=== PATIENT | male | born 1985 | race Caucasian/White ===

== ENCOUNTER 2016-11-26 15:12 | Emergency (ER) | payer OTHER ==
[2016-11-26] MEDS: NS 0.9% 1000 ML* 2,000 ML IV ONE ×2 (17:27→17:40)
--- NOTE | 2016-11-26 17:47 | RAD ---
Indication: Near syncope. Vomiting. Comparison: No relevant prior exams available on the [facility] PACS for comparison. Technique: Upright AP 1715 hours Report: Clear lungs and pleural spaces. Negative for pneumothorax. The heart, pulmonary vasculature, and mediastinal contours are unremarkable. Negative for free air beneath the diaphragm. Unremarkable osseous structures and soft tissue contours. IMPRESSION: No evidence for acute intrathoracic disease.
[2016-11-26 18:06] LABS: BUN/Creatinine Ratio 10.4 (8-20); Calcium 9.4 mg/dL (8.6-10.3); Comments Flag Yes; EGFR African American 86.6 (>60); EGFR Non-African American 67.4 (>60); Globulin 3.3 g/dL (2-4); Hematocrit 50 % (42-52); Hemoglobin 16.8 g/dl (14.0-18.0); Magnesium 2.3 mg/dL (1.9-2.7); Mean Corpuscular HGB Conc 34 g/dl (31-36); Mean Corpuscular Hemoglobin 32 pg (27-31); Mean Corpuscular Volume 94 fL (80-94); Mean Platelet Volume 10 um3 (7.4-10.4); Potassium 3.8 mmol/L (3.5-5.0); Red Cell Distribution Width 13 % (10.5-15); Total Bilirubin 0.4 mg/dL (0.2-1.0); Total Protein 8.3 g/dL (6.4-8.9); Troponin I 0.01 ng/mL (<0.04); White Blood Count 28.7 10^3/ul (3.5-10.8)
[2016-11-26 18:07] LABS: Add Diff/Slide Review? Slide Review Added
[2016-11-26 18:33] LABS: TSH (Thyroid Stimulating Horm) 0.29 mcIU/mL (0.34-5.60)
--- NOTE | 2016-11-26 18:53 | ED ---
Sadie Lafleur Alfonso, scribed for Michael Young MD on 11/26/16 at 1716 . Complex/Multi-Sys Presentation - HPI Summary HPI Summary: This patient is a 31 year old M presenting to [facility] accompanied by with a chief complaint of fainting this afternoon. The CC is described as feeling fuzzy and terrible. The patient rates the pain 3/10 in severity. Symptoms aggravated by nothing and alleviated by vomiting. The patient reports chills, diaphoresis, dehydration, N/V (resolved), CP (aching and sore), h and numbness. The patient denies any headache blurred vision, diarrhea, and constipation. He reports consuming 4 beers this morning. - History Of Current Complaint Chief Complaint: EDGeneral Time Seen by Provider: 11/26/16 17:03 Hx Obtained From: Patient Onset/Duration: Sudden Onset, Lasting Days - Afternoon, Still Present, Resolved Timing: Constant Severity Currently: Mild Severity Initially: Mild Aggravating Factor(s): Nothing Alleviating Factor(s): Vomiting Associated Signs And Symptoms: Positive: Other - The patient reports chills, diaphoresis, dehydration, N/V (resolved), CP (aching and sore), headache, and numbness. The patient denies blurred vision, diarrhea, and constipation. - Allergies/Home Medications Allergies/Adverse Reactions: Allergies Allergy/AdvReac Type Severity Reaction Status Date / Time No Known Allergies Allergy Verified 03/24/15 11:08 PMH/Surg Hx/FS Hx/Imm Hx Endocrine/Hematology History: Denies: Hx Diabetes Cardiovascular History: Denies: Hx Hypertension, Hx Pacemaker/ICD History: Denies: Hx Dialysis, Hx Renal Disease Sensory History: Denies: Hx Hearing Aid Psychiatric History: Denies: Hx Panic Disorder - Immunization History Date of Tetanus Vaccine: UTD Date of Influenza Vaccine: NO Infectious Disease History: No Infectious Disease History: Denies: Traveled Outside the [place] in Last 30 Days - Family History Known Family History: Negative: Cardiac Disease, Diabetes - Social History Alcohol Use: Daily Substance Use Type: Reports: None Smoking Status (MU): Never Smoked Tobacco Review of Systems Positive: Chills, Skin Diaphoresis, Other - Positive dehydration Negative: Blurred Vision Positive: Vomiting, Nausea, Other - Negative constipation.. Negative: Diarrhea Positive: Headache, Numbness, Syncope All Other Systems Reviewed And Are Negative: Yes Physical Exam - Summary Physical Exam Summary: VITAL SIGNS: Reviewed. GENERAL: Patient is a well-developed and nourished male who is lying comfortable in the stretcher. Patient is not in any acute respiratory distress. Alcohol smell on his breath. HEAD AND FACE: No signs of trauma. No ecchymosis, hematomas or skull depressions. No sinus tenderness. EYES: PERRLA, EOMI x 2, No injected conjunctiva, no nystagmus. EARS: Hearing grossly intact. Ear canals and tympanic membranes are within normal limits. MOUTH: Oropharynx within normal limits. NECK: Supple, trachea is midline, no adenopathy, no JVD, no carotid bruit, no c- spine tenderness, neck with full ROM. CHEST: Symmetric, no tenderness at palpation LUNGS: Clear to auscultation bilaterally. No wheezing or crackles. CVS: Regular rate and rhythm, S1 and S2 present, Murmur appreciated. No gallops appreciated. ABDOMEN: Soft, non-tender. No signs of distention. No rebound no guarding, and no masses palpated. Bowel sounds are normal. EXTREMITIES: FROM in all major joints, no edema, no cyanosis or clubbing. NEURO: Alert and oriented x 3. No acute neurological deficits. Speech is normal and follows commands. SKIN: Dry and warm Triage Information Reviewed: Yes Vital Signs On Initial Exam: Initial Vitals Temp Pulse Resp BP Pulse Ox 97.5 F 110 20 115/59 100 11/26/16 15:20 11/26/16 15:20 11/26/16 15:20 11/26/16 15:20 11/26/16 15:20 Vital Signs Reviewed: Yes - Barbara Coma Scale Coma Scale Total: 15 Diagnostics - Vital Signs Vital Signs Temp Pulse Resp BP Pulse Ox 11/26/16 16:17 97.5 F 110 20 115/59 100 11/26/16 15:20 97.5 F 110 20 115/59 100 - Laboratory Lab Results: Lab Results 11/26/16 11/26/16 11/26/16 Range/Units 17:35 17:35 17:35 WBC 28.7 H (3.5-10.8) 10^3/ul RBC 5.30 (4.0-5.4) 10^6/ul Hgb 16.8 (14.0-18.0) g/dl Hct 50 (42-52) % MCV 94 (80-94) fL MCH 32 H (27-31) pg MCHC 34 (31-36) g/dl RDW 13 (10.5-15) % Plt Count 238 (150-450) 10^3/ul MPV 10 (7.4-10.4) um3 Neut % (Auto) 87.1 H (38-83) % Lymph % (Auto) 5.4 L (25-47) % [place] % (Auto) 7.1 (1-9) % Eos % (Auto) 0.2 (0-6) % Baso % (Auto) 0.2 (0-2) % Absolute Neuts (auto) 25.0 H (1.5-7.7) 10^3/ul Absolute Lymphs (auto) 1.6 (1.0-4.8) 10^3/ul Absolute Monos (auto) 2.0 H (0-0.8) 10^3/ul Absolute Eos (auto) 0.1 (0-0.6) 10^3/ul Absolute Basos (auto) 0.1 (0-0.2) 10^3/ul Absolute Nucleated RBC 0.05 10^3/ul Nucleated RBC % 0.2 Sodium 140 (133-145) mmol/L Potassium 3.8 (3.5-5.0) mmol/L Chloride 103 (101-111) mmol/L Carbon Dioxide 26 (22-32) mmol/L Anion Gap 11 (2-11) mmol/L BUN 13 (6-24) mg/dL Creatinine 1.25 H (0.67-1.17) mg/dL Est GFR ( Amer) 86.6 (>60) Est GFR (Non-Af Amer) 67.4 (>60) BUN/Creatinine Ratio 10.4 (8-20) Glucose 89 (70-100) mg/dL Lactic Acid 1.9 (0.5-2.0) mmol/L Calcium 9.4 (8.6-10.3) mg/dL Magnesium 2.3 (1.9-2.7) mg/dL Total Bilirubin 0.40 (0.2-1.0) mg/dL AST 19 (13-39) U/L ALT 12 (7-52) U/L Alkaline Phosphatase 72 (34-104) U/L Total Creatine Kinase 270 H (10-223) U/L Troponin I 0.01 (<0.04) ng/mL B-Natriuretic Peptide ( - 100) pg/mL Total Protein 8.3 (6.4-8.9) g/dL Albumin 5.0 (3.2-5.2) g/dL Globulin 3.3 (2-4) g/dL Albumin/Globulin Ratio 1.5 (1-3) TSH 0.29 L (0.34-5.60) mcIU/mL Serum Alcohol 183 H (<10) mg/dL 11/26/16 Range/Units 17:35 WBC (3.5-10.8) 10^3/ul RBC (4.0-5.4) 10^6/ul Hgb (14.0-18.0) g/dl Hct (42-52) % MCV (80-94) fL MCH (27-31) pg MCHC (31-36) g/dl RDW (10.5-15) % Plt Count (150-450) 10^3/ul MPV (7.4-10.4) um3 Neut % (Auto) (38-83) % Lymph % (Auto) (25-47) % [place] % (Auto) (1-9) % Eos % (Auto) (0-6) % Baso % (Auto) (0-2) % Absolute Neuts (auto) (1.5-7.7) 10^3/ul Absolute Lymphs (auto) (1.0-4.8) 10^3/ul Absolute Monos (auto) (0-0.8) 10^3/ul Absolute Eos (auto) (0-0.6) 10^3/ul Absolute Basos (auto) (0-0.2) 10^3/ul Absolute Nucleated RBC 10^3/ul Nucleated RBC % Sodium (133-145) mmol/L Potassium (3.5-5.0) mmol/L Chloride (101-111) mmol/L Carbon Dioxide (22-32) mmol/L Anion Gap (2-11) mmol/L BUN (6-24) mg/dL Creatinine (0.67-1.17) mg/dL Est GFR ( Amer) (>60) Est GFR (Non-Af Amer) (>60) BUN/Creatinine Ratio (8-20) Glucose (70-100) mg/dL Lactic Acid (0.5-2.0) mmol/L Calcium (8.6-10.3) mg/dL Magnesium (1.9-2.7) mg/dL Total Bilirubin (0.2-1.0) mg/dL AST (13-39) U/L ALT (7-52) U/L Alkaline Phosphatase (34-104) U/L Total Creatine Kinase (10-223) U/L Troponin I (<0.04) ng/mL B-Natriuretic Peptide 13 ( - 100) pg/mL Total Protein (6.4-8.9) g/dL Albumin (3.2-5.2) g/dL Globulin (2-4) g/dL Albumin/Globulin Ratio (1-3) TSH (0.34-5.60) mcIU/mL Serum Alcohol (<10) mg/dL Result Diagrams: 11/26/16 17:35 11/26/16 17:35 Lab Statement: Any lab studies that have been ordered have been reviewed, and results considered in the medical decision making process. - Radiology CXR Radiology Interpretation Completed By: Radiologist - No evidence for acute intrathoracic disease. - EKG 1530 Cardiac Rate: Tachycardia - BPM 115 EKG Rhythm: Sinus Tachycardia EKG Interpretation: Q waves in II and III Complex Multi-Symp Course/Dx Course Of Treatment: This patient is a 31 year old M presenting to [facility] accompanied by with a chief complaint of fainting this afternoon. No LOC. The CC is described as feeling fuzzy and terrible. The patient rates the pain 3/10 in severity. Symptoms aggravated by nothing and alleviated by vomiting. The patient reports chills, diaphoresis, dehydration, N/V (resolved), CP ( aching and sore), numbness. The patient denies any headache, blurred vision, diarrhea, and constipation. He reports consuming 4 beers this morning. Assessment/Plan: Blood tests show WBC of 28.7 without any bands, creatinine of 1.25, CBK of 270, and serum alcohol of 183. EKG reveals sinus tachycardia. CXR reveals No evidence for acute intrathoracic disease. In the ED course, the patient was given 2 liters of IV fluid. Patient remains stable without any complains and he reports that he is feeling better. After the second liter is done I will repeat to blood work to see if the WBC decreases. Pt denies any headache, CP, SOB, N/V, diarrhea, or constipation currently. He denies any dysuria, urinary frequency, or urgency. Therefore, I will sign out the patient to Dr. Yusuf to repeat the blood work and see if Leukocytosis improves. At this time, the patient is hemodynamically stable and alert and oriented to person, place, and time. - Diagnoses Provider Diagnoses: Leucocytosis, Dehydration, Alcohol intoxication Discharge - Discharge Plan Condition: Stable Disposition: OTHER Discharge Disposition Comment: Pt is signed out to Dr. Yusuf, pending disposition, awaiting labs. Referrals: [facility] [Outside] - 3 Days The documentation as recorded by the Sadie tyler Alfonso accurately reflects the service I personally performed and the decisions made by me, Michael Young MD.
[2016-11-26] MEDS ORDERED: NS 0.9% 1000 ML* 1,000 ML BOLUS ONE (20:15)
[2016-11-26 20:27] LABS: Hematocrit 44 % (42-52); Hemoglobin 14.9 g/dl (14.0-18.0); Mean Corpuscular HGB Conc 34 g/dl (31-36); Mean Corpuscular Hemoglobin 32 pg (27-31); Mean Corpuscular Volume 94 fL (80-94); Mean Platelet Volume 10 um3 (7.4-10.4); Red Blood Count 4.65 10^6/ul (4.0-5.4); Red Cell Distribution Width 12 % (10.5-15); White Blood Count 17.5 10^3/ul (3.5-10.8)
[2016-11-26 20:32] LABS: Add Diff/Slide Review? Slide Review Added; Comments Flag Yes
[2016-11-26 21:00] LABS: BUN/Creatinine Ratio 10.5 (8-20); Calcium 8.7 mg/dL (8.6-10.3); EGFR African American 96.4 (>60); EGFR Non-African American 74.9 (>60); Potassium 4.1 mmol/L (3.5-5.0)
[2016-11-26 21:40] LABS: Urine Bacteria Absent (Absent); Urine Bilirubin Negative (Negative); Urine Glucose Negative (Negative); Urine Nitrite Negative (Negative)
[2016-11-26 21:47] VITALS: BP 130/89
--- NOTE | 2016-11-26 22:03 | ED ---
Jhon Lafleur Soohyun, scribed for Anette Yusuf MD on 11/26/16 at 2013 . Progress - Progress Note Progress Note: This 31 y/o male has been signed out from Dr. Young. Blood work with elevated WBC is reviewed with pt and significant other present at bedside at 2012 PM. Hard copies of blood work is provided to patient. Negative SOB, although pt is noted with respiratory rate fluctuating between 10s and 30s while lying down on stretcher. Respiratory is mostly in 10s when pt is upright. Negative CP. Pt again confirms that he only consumed alcohol today SE[employer]. Pt expresses that he is ready for discharge. Pt is encouraged to provide urine sample. Re-Evaluation - Re-Evaluation First Eval Re-Evaluation Time: 21:42 Comment: MD in room to update pt and significant other present at bedside on UA. Plan of care involving discharge and outpatient f/u is discussed and they are agreeable. Course/Dx - Diagnoses Provider Diagnoses: Leucocytosis, Dehydration, Alcohol intoxication, Elevated BP without diagnosis of hypertension The documentation as recorded by the Jhon tyler Soohyun accurately reflects the service I personally performed and the decisions made by me, Anette Yusuf MD.
== END 2016-11-26 21:51 | disposition home or self-care (01) ==
LOC: ED 15:12
DX: D72.829 Elevated white blood cell count, unspecified (principal); E86.0 Dehydration; F10.129 Alcohol abuse with intoxication, unspecified; Y90.6 Blood alcohol level of 120-199 mg/100 ml; R51 Headache; R55 Syncope and collapse
CPT/HCPCS: 36415; 71010; 80048; 80053; 80320; 81003; 81015; 82550; 82553; 83605; 83735; 83880; 84443; 84484; 85025; 87086; 93005; 96360; 99283; G0480

== ENCOUNTER 2019-01-05 11:17 | Emergency (ER) | payer OTHER ==
[2019-01-05 11:51] VITALS: BP 135/89
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
== END 2019-01-05 12:53 | disposition home or self-care (01) ==
LOC: UCEAST 11:17
DX: M79.642 Pain in left hand (principal)
CPT/HCPCS: 99213; G0463